=== PATIENT | female | born 1990 | race American Indian/Alaskan Native ===

== ENCOUNTER 2017-05-04 14:04 | Emergency (ER) | payer MEDICAID ==
[2017-05-04 14:26] VITALS: BP 121/78
[2017-05-04 14:58] LABS: Basophils % (Auto) 0.5 % (0.0-1.8); Eosinophils # (Auto) 0.3 K/mm3 (0.0-0.4); Eosinophils % (Auto) 3.1 % (0.0-4.3); Hematocrit 35.9 % (30.3-42.9); Hemoglobin 12.3 gm/dl (10.1-14.3); Lymphocytes # (Auto) 1.5 K/mm3 (1.2-5.4); Lymphocytes % (Auto) 14.5 % (13.4-35.0); Mean Corpuscular HGB Conc 34 % (30-34); Mean Corpuscular Hemoglobin 30 pg (28-32); Mean Corpuscular Volume 88 fl (79-97); Monocytes # (Auto) 0.6 K/mm3 (0.0-0.8); Monocytes % (Auto) 6.1 % (0.0-7.3); Platelet Count 209 K/mm3 (140-440); Red Blood Count 4.06 M/mm3 (3.65-5.03); Red Cell Distribution Width 14.3 % (13.2-15.2)
[2017-05-04 15:03] LABS: BUN/Creatinine Ratio 15; Blood Urea Nitrogen 6 mg/dL (7-17); Hemolysis Index 7
--- NOTE | 2017-05-04 17:12 | Ultrasound Report ---
FINAL REPORT PROCEDURE: US OB > = 14 WEEKS FETUS TWIN A TECHNIQUE: Real-time transabdominal sonography of the uterus, placenta, amniotic fluid, adnexa, and fetus was performed with image documentation. Measurements were obtained to determine age/size. M-mode Doppler was used to document heartbeat. CPT 49500 HISTORY: Vaginla bleeding COMPARISON: Today twin B FINDINGS: ADDITIONAL GESTATION: THIS IS TWIN A TWIN B IS REPORTED SEPARATELY GENERAL: IUP: Single living intrauterine . Position: Cephalic Placental position: Anterior, without previa. Amniotic fluid volume: Normal. MATERNAL: Uterus: Within normal limits. Cervical length: 3.6 cm. Internal Os: Closed. FETUS: Heart rate and rhythm: 166 BPM, Regular. MEASUREMENTS: BPD: 16 week 4 day HC: 16 weeks 3 days AC: 16 week 4 day FL: 15 week 2 day Mean Gestational Age (composite criteria): 16 week 2 day Ratio biometry: Cephalic index 83.9 Estimated Weight: 143 grams. Interval growth: No prior Estimated Due Date (earliest scan): 10/17/2017 IMPRESSION: Twin a of twin gestations at 16 weeks 2 days. Estimated due date: 10/17/2017. Please see separate report on twin B. There appears to be 1 placenta and 1 amniotic sac. No acute pathology seen. Followup detailed study OB office as warranted
--- NOTE | 2017-05-04 17:15 | Ultrasound Report ---
FINAL REPORT PROCEDURE: US OB > = 14 WK FETUS ADD GEST TECHNIQUE: Real-time transabdominal sonography of the uterus, placenta, amniotic fluid, adnexa, and fetus was performed with image documentation. Measurements were obtained to determine age/size. M-mode Doppler was used to document heartbeat. CPT 10841 HISTORY: Vaginal bleeding COMPARISON: No prior studies are available for comparison. FINDINGS: TWIN B CURRENT STUDY. PLEASE SEE SEPARATE REPORT ON TWIN A. GENERAL: IUP: Single living intrauterine . Position: Cephalic Placental position: Anterior, without previa. Amniotic fluid volume: Normal. MATERNAL: Uterus: Within normal limits. Cervical length: 3.6 cm. Internal Os: Closed. FETUS: Heart rate and rhythm: 176 BPM, Regular. MEASUREMENTS: BPD: 16 week 3 day HC: 16 weeks 2 days AC: 15 week 3 day FL: 15 week 2 day Mean Gestational Age (composite criteria): 15 weeks 6 days Ratio biometry: Cephalic index 85.8 Interval growth: None Estimated Due Date (earliest scan): 10/20/2017 IMPRESSION: Twin B of twin gestation at 15 weeks 6 days. Estimated due date: 10/20/2017. Appears to be 1 placenta in 1 amniotic sac. No acute pathology. Followup detailed study in OB office if warranted.
--- NOTE | 2017-05-04 18:20 | Emergency Department Report ---
ED Female HPI - General Chief complaint: Vaginal Bleeding Stated complaint: VAGINAL BLEEDING Time Seen by Provider: 05/04/17 17:48 Source: patient Mode of arrival: Ambulatory Limitations: No Limitations - History of Present Illness Initial comments: Patient is a 26-year-old female who presents to ED complaining of episode of vaginal bleeding that started about an hour prior to coming into the ED. Patient states she is about 15 weeks gestation and started noticing some right red bleeding today. Patient denies any nausea or vomiting, shortness of breath , vaginal discharge, dysuria or any other problems. MD Complaint: vaginal bleeding -: hour(s) (1) Are you Now?: Yes Associated Symptoms: denies: vaginal discharge, abdominal pain, nausea/vomiting , fever/chills, headaches, hematuria, rash, shortness of breath - Related Data Allergies Allergy/AdvReac Type Severity Reaction Status Date / Time No Known Allergies Allergy Unverified 05/04/17 14:26 ED Review of Systems ROS: Stated complaint: VAGINAL BLEEDING Other details as noted in HPI Constitutional: denies: chills, fever Eyes: denies: eye pain, eye discharge, vision change ENT: denies: ear pain, throat pain Respiratory: denies: cough, shortness of breath, wheezing Cardiovascular: denies: chest pain, palpitations Endocrine: no symptoms reported Gastrointestinal: denies: abdominal pain, nausea, vomiting, diarrhea Genitourinary: as per HPI. denies: urgency, dysuria, frequency, hematuria, discharge Musculoskeletal: denies: back pain, joint swelling, arthralgia Skin: denies: rash, lesions Neurological: denies: headache, weakness, paresthesias Psychiatric: denies: anxiety, depression Hematological/Lymphatic: denies: easy bleeding, easy bruising ED Past Medical Hx - Past Medical History Previous Medical History?: Yes Additional medical history: Blood transfusions, stillborn, miscarriage - Surgical History Past Surgical History?: No - Social History Smoking Status: Never Smoker Substance Use Type: None ED Physical Exam - General Limitations: No Limitations General appearance: alert, in no apparent distress - Head Head exam: Present: atraumatic, normocephalic - Eye Eye exam: Present: normal appearance - ENT ENT exam: Present: mucous membranes moist - Neck Neck exam: Present: normal inspection - Respiratory Respiratory exam: Present: normal lung sounds bilaterally. Absent: respiratory distress, wheezes - Cardiovascular Cardiovascular Exam: Present: regular rate, normal rhythm. Absent: systolic murmur, diastolic murmur, rubs, gallop - GI/Abdominal GI/Abdominal exam: Present: soft, normal bowel sounds - Extremities Exam Extremities exam: Present: normal inspection - Back Exam Back exam: Present: normal inspection - Neurological Exam Neurological exam: Present: alert, oriented X3 - Psychiatric Psychiatric exam: Present: normal affect, normal mood - Skin Skin exam: Present: warm, dry, intact, normal color. Absent: rash ED Course Vital Signs 05/04/17 14:23 Temperature 98.6 F Pulse Rate 91 H Respiratory 16 Rate Blood Pressure 121/78 O2 Sat by Pulse 100 Oximetry ED Medical Decision Making - Lab Data Result diagrams: 05/04/17 14:43 05/04/17 14:43 Laboratory Last Values WBC 10.1 K/mm3 (4.5-11.0) 05/04/17 14:43 RBC 4.06 M/mm3 (3.65-5.03) 05/04/17 14:43 Hgb 12.3 gm/dl (10.1-14.3) 05/04/17 14:43 Hct 35.9 % (30.3-42.9) 05/04/17 14:43 MCV 88 fl (79-97) 05/04/17 14:43 MCH 30 pg (28-32) 05/04/17 14:43 MCHC 34 % (30-34) 05/04/17 14:43 RDW 14.3 % (13.2-15.2) 05/04/17 14:43 Plt Count 209 K/mm3 (140-440) 05/04/17 14:43 Lymph % (Auto) 14.5 % (13.4-35.0) 05/04/17 14:43 [place] % (Auto) 6.1 % (0.0-7.3) 05/04/17 14:43 Eos % (Auto) 3.1 % (0.0-4.3) 05/04/17 14:43 Baso % (Auto) 0.5 % (0.0-1.8) 05/04/17 14:43 Lymph # 1.5 K/mm3 (1.2-5.4) 05/04/17 14:43 [place] # 0.6 K/mm3 (0.0-0.8) 05/04/17 14:43 Eos # 0.3 K/mm3 (0.0-0.4) 05/04/17 14:43 Baso # 0.0 K/mm3 (0.0-0.1) 05/04/17 14:43 Seg Neutrophils % 75.8 % (40.0-70.0) H 05/04/17 14:43 Seg Neutrophils # 7.7 K/mm3 (1.8-7.7) 05/04/17 14:43 Sodium 136 mmol/L (137-145) L 05/04/17 14:43 Potassium 4.1 mmol/L (3.6-5.0) 05/04/17 14:43 Chloride 98.4 mmol/L (98-107) 05/04/17 14:43 Carbon Dioxide 24 mmol/L (22-30) 05/04/17 14:43 Anion Gap 18 mmol/L 05/04/17 14:43 BUN 6 mg/dL (7-17) L 05/04/17 14:43 Creatinine 0.4 mg/dL (0.7-1.2) L 05/04/17 14:43 Estimated GFR > 60 ml/min 05/04/17 14:43 BUN/Creatinine Ratio 15 % 05/04/17 14:43 Glucose 62 mg/dL (65-100) L 05/04/17 14:43 Calcium 9.0 mg/dL (8.4-10.2) 05/04/17 14:43 HCG, Quant 402950 mIU/mL (0-4) H 05/04/17 14:43 Blood Type O POSITIVE 05/04/17 14:43 Antibody Screen Negative 05/04/17 14:43 - Radiology Data Radiology results: report reviewed, image reviewed FINAL REPORT PROCEDURE: US OB gt; = 14 WEEKS FETUS TWIN A TECHNIQUE: Real-time transabdominal sonography of the uterus, placenta, amniotic fluid, adnexa, and fetus was performed with image documentation. Measurements were obtained to determine age/size. M-mode Doppler was used to document heartbeat. CPT 32349 HISTORY: Vaginla bleeding COMPARISON: Today twin B FINDINGS: ADDITIONAL GESTATION: THIS IS TWIN A TWIN B IS REPORTED SEPARATELY GENERAL: IUP: Single living intrauterine . Position: Cephalic Placental position: Anterior, without previa. Amniotic fluid volume: Normal. MATERNAL: Uterus: Within normal limits. Cervical length: 3.6 cm. Internal Os: Closed. FETUS: Heart rate and rhythm: 166 BPM, Regular. MEASUREMENTS: BPD: 16 week 4 day HC: 16 weeks 3 days AC: 16 week 4 day FL: 15 week 2 day Mean Gestational Age (composite criteria): 16 week 2 day Ratio biometry: Cephalic index 83.9 Estimated Weight: 143 grams. Interval growth: No prior Estimated Due Date (earliest scan): 10/17/2017 IMPRESSION: Twin a of twin gestations at 16 weeks 2 days. Estimated due date: 10/17/2017. Please see separate report on twin B. There appears to be 1 placenta and 1 amniotic sac. No acute pathology seen. Followup detailed study OB office as warranted HISTORY: Vaginal bleeding COMPARISON: No prior studies are available for comparison. FINDINGS: TWIN B CURRENT STUDY. PLEASE SEE SEPARATE REPORT ON TWIN A. GENERAL: IUP: Single living intrauterine . Position: Cephalic Placental position: Anterior, without previa. Amniotic fluid volume: Normal. MATERNAL: Uterus: Within normal limits. Cervical length: 3.6 cm. Internal Os: Closed. FETUS: Heart rate and rhythm: 176 BPM, Regular. MEASUREMENTS: BPD: 16 week 3 day HC: 16 weeks 2 days AC: 15 week 3 day FL: 15 week 2 day Mean Gestational Age (composite criteria): 15 weeks 6 days Ratio biometry: Cephalic index 85.8 Interval growth: None Estimated Due Date (earliest scan): 10/20/2017 IMPRESSION: Twin B of twin gestation at 15 weeks 6 days. Estimated due date: 10/20/2017. Appears to be 1 placenta in 1 amniotic sac. No acute pathology. Followup detailed study in OB office if warranted. Transcribed By: EVANGELIST Dictated By: GAYATRI HERRING MD Electronically Authenticated By: GAYATRI HERRING MD Signed Date/Time: 05/04/17 1311 - Medical Decision Making 26-year-old female presents to ED with her and her portion ED course: Patient received ultra sound, CBC, urinalysis, test and quantitative ED All labs within normal limits quantitative elevated matching gestation age Patient states that bleeding is resolved when she is went into the bathroom to check Patient is followed by an [employer] out of [place] Dr. Paul Patient states she has no primary doctor [place] in 1 week Ultrasound shows twin gestation at 16 weeks with 166 , 17 6 bpm respectively. See reported above Vital signs normalized patient is in no acute distress. I discussed with the patient if follow-up with her [employer]. I discussed all labs and ultrasound findings with the patient. I discussed with the patient that he if bleeding worsens or new symptoms develop to return to ED immediately Critical care attestation.: If time is entered above; I have spent that time in minutes in the direct care of this critically ill patient, excluding procedure time. ED Disposition Clinical Impression: Threatened in second trimester Twin gestation in second trimester Qualifiers: Multiple gestation type: monochorionic and monoamniotic Qualified Code(s): O30.012 - Twin , monochorionic/monoamniotic, second trimester Disposition: - TO HOME OR SELFCARE Is pt being admited?: No Does the pt Need Aspirin: No Condition: Stable Instructions: Threatened Miscarriage (ED), (ED) Additional Instructions: Make sure to follow up with Dr. Paul your [employer] as discussed. Take all your medications as you've been prescribed. No intercourse for the next week until follow-up which [employer] In[employer] your water intake and keep hydrating properly 8-10 glasses per day. If you have any worsening symptoms or develop new symptoms please return to ED immediately. Referrals: ELIZABETH KARIMI MD [Referring] - 3-5 Days HUNTER SUH MD [Referring] - 3-5 Days Forms: Work/School Release Form(ED) Time of Disposition: 18:16
== END 2017-05-04 18:24 | disposition home or self-care (01) ==
LOC: ED 14:04
DX: O20.0 Threatened abortion (principal); Z3A.15 15 weeks gestation of pregnancy
CPT/HCPCS: 36415; 76805; 76810; 80048; 84702; 85025; 86850; 86900; 86901; 99284